=== PATIENT | male | born 1960 | race Caucasian/White ===

== ENCOUNTER → 2020-06-01 10:18 | Outpatient (BNVA) | payer OTHER, SELFPAY | PROVIDERS: PCP Internal Medicine; Visit Provider Internal Medicine Cardiovascular Disease | DX: R06.00 Dyspnea, unspecified (principal); R07.9 Chest pain, unspecified; E78.5 Hyperlipidemia, unspecified; I71.2 Thoracic aortic aneurysm, without rupture; Z82.49 Family history of ischemic heart disease and other diseases of the circulatory system | CPT/HCPCS: 93005 ==

== ENCOUNTER → 2020-06-09 08:16 | Outpatient (REF) | payer OTHER, SELFPAY ==
--- NOTE | ~2020-06-09 | NM_ITS ---
Exercise Myocardial perfusion study Indication: Chest pain to evaluate for myocardial ischemia Technique: The patient was brought in for an exercise perfusion study on 06/09/2020. Patient performed exercise as per Emmanuel protocol and was injected 30 mCi of sestamibi was given intravenously one target HR was achieved. Images were obtained using the SPECT gamma camera interlaced with the gating device. Images were obtained in supine position. Resting perfusion study was performed on 06/10/2020. Patient was administered 30 mCi of sestamibi intravenously at rest. Images were then obtained in supine position. Images obtained with and without CT attenuation. Total DLP 80 mGy-cm. Images were processed with the software and compared side to side in short axis, horizontal long axis and vertical long axis views. Findings: The stress perfusion study showed non attenuated images show minimally reduced uptake in the basal inferior wall of the LV myocardium. Attenuation corrected images show normal uptake of radiotracer in all segments of LV myocardium.. The gated study shows normal LV systolic function with calculated LVEF of 75%. LV cavity is normal in size. The gated study shows normal systolic wall thickening and contraction of all segments. There is no transient ischemic dilation. Resting study shows no change in perfusion pattern compared to stress perfusion study. Gating at rest reveals normal systolic wall motion with ejection fraction at 69%. The findings are consistent with normal myocardial perfusion. NM/NM cardiolite stress test Impression: 1. Normal myocardial perfusion 2. Gated LVEF is 69% 3. Transient ischemic dilatation not present Stress EKG is equivocal for ischemia
--- NOTE | 2020-06-09 08:30 | CA_ITS ---
Acquisition Time: 2020-06-09 09:27:09 Total Exercise Time: 00:11:00 Test Indications: CP SOB Medications: SEE CHART Protocol: GAEL Max HR: 148 BPM 91% of Pred: 161 BPM Max BP: 182/072 mmHG Max Work Load: 13.4 METS Exercise nuclear stress test using Gael protocol. Total of 11 minutes. METS 13.4 and TAPHR up to 90 %. Pt tolerated well, c/o chest pain that felt like muscular in his L chest radiating to his shoulder. EKG with occasional PAC's, no ischemic changes seen during exercise or in recovery. Nuclear images to follow. Hypertensive response to exercise. Test reviewed with Dr. Nickerson. Referred By: John Nickerson Overread By:
== END ==
LOC: HO.CARD 08:16
PROVIDERS: PCP Internal Medicine; Visit Provider Internal Medicine Cardiovascular Disease
DX: R07.9 Chest pain, unspecified (principal); R06.00 Dyspnea, unspecified
CPT/HCPCS: 78452; 93016; 93017; 93018; A9500

== ENCOUNTER → 2020-07-11 12:52 | Outpatient (REF) | payer OTHER, SELFPAY ==
--- NOTE | 2020-07-11 12:45 | CA_ITS ---
Transthoracic Echocardiogram Patient (Last, First, Middle): Efraín Aguirre G Gender: Male Date of : 1960 Age: 60 Procedure Date: 07/11/2020 Procedure Type: Transthoracic Echocardiogram Location: OP Height: 172.72 cm Weight: 79.38 kg BSA: 1.93 m2 Heart Rate: bpm BP: 119 / 68 mmHg Pelletizer Operator: MAHOGANY Referring MD: John Nickerson MD Symptoms: I71.2 - Thoracic aortic aneurysm, without rupture Study Quality: Fair ECG Rhythm: Sinus Conclusions: - The left ventricular systolic function is normal. The visually estimated ejection fraction is between 60-65%. - No obvious valvular pathology seen on this study. - Top normal ascending aortic size at 3.7cm. Findings Left Ventricle Normal left ventricular cavity size. There is normal left ventricular wall thickness. The left ventricular systolic function is normal. The visually estimated ejection fraction is between 60-65%. There is no evidence of regional wall motion abnormalities. Diastolic function is normal for age. Right Ventricle Normal right ventricular cavity size and systolic function. Atria The left atrium is normal in size. The right atrium is normal in size. Aortic Valve There is a normal trileaflet aortic valve. There is no aortic valve stenosis. There is no aortic valve regurgitation. Mitral Valve The mitral valve appears normal. There is trace mitral valve regurgitation. There is no mitral valve stenosis. Pulmonic Valve The pulmonic valve was not well visualized. Tricuspid Valve Normal tricuspid valve structure. There is mild tricuspid valve regurgitation. The pulmonary artery systolic pressure is normal. Great Vessels The aortic arch is normal in size. Top normal ascending aortic size at 3.7cm. Venous The inferior vena cava is normal in size and collapses greater than 50% with inspiration. Pericardium/Pleural There is no evidence of pericardial effusion. Prior Study Comparison No significant change compared to prior study dated: 01/09/2017. Recommendations, Care & Conclusions No obvious valvular pathology seen on this study. Measurements 2D Linear Measurements IVSd: 0.95 0.6-0.9/0.6-1.0 cm LVIDd: 4.31 3.9-5.3/4.2-5.9 cm LVIDd Index: 2.23 2.4-3.2/2.2-3.1 cm/m2 LVIDs: 2.88 2.0-3.6 cm LVPWd: 1.10 0.7-1.1 cm Ao Root: 3.40 2.1-3.5 cm LA Diam: 2.60 2.7-3.8/3.0-4.0 cm LAIDs Index: 1.35 1.5-2.3 cm/m2 LV Mass: 184.66 67-162/88-224 g LV Mass Index: 95.68 43-95/49-115 g/m2 LVOT Diam: 2.50 3.0+(-)1.3 cm 2D Systolic Function EF 4C: 59.40 >55% Mitral Valve MV Pk E: 0.76 MV PK A: 0.49 MV Decel Time: 204.00 E/A: 1.60 E'Lateral: 11.20 E'Medial: 9.96 E/E' Med: 7.60 E/E' Lat: 6.80 PHT: 60.00 MVA PHT: 3.67 Decel Karnes: 3.71 Aortic Valve AoV Pk Oswald: 1.10 AoV Pk Grad: 5.00 LVOT LVOT Pk Oswald: 0.89 LVOT Mn Oswald: 0.54 LVOT VTI: 0.19 LVOT Pk Grad: 3.00 LVOT Mn Grad: 1.00 LVOT Diam: 2.50 LVOT Area: 4.91 Diastolic Function MV Pk E: 0.76 MV Pk A: 0.49 E/A: 1.60 E'Medial: 9.96 E/E' Med: 7.60 E' Laterial: 11.20 E/E' Lat: 6.80 Tricuspid Valve TR Pk Oswald: 2.10 TR Pk Grad: 18.00 RA Press: 3.00 Great Vessels Aorta Ao Root-2D: 3.40 2.0-3.7 cm Ao Asc: 3.60 2.1-3.4 cm Ao Arch: 3.10 Updated in Other Vendor System with Status of Final Andriy Renteria MD electronically signed on 07/12/2020 8:46:00 AM with status of Final
== END ==
LOC: HO.CARD 12:52
PROVIDERS: Visit Provider Internal Medicine Cardiovascular Disease
DX: R07.9 Chest pain, unspecified (principal); I71.2 Thoracic aortic aneurysm, without rupture
CPT/HCPCS: 93306

== ENCOUNTER → 2020-07-14 08:52 | Outpatient (BNVA) | payer OTHER, SELFPAY | PROVIDERS: PCP Internal Medicine; Visit Provider Internal Medicine Cardiovascular Disease ==

== ENCOUNTER 2021-02-20 08:14 | Outpatient (REF) | payer OTHER, SELFPAY ==
--- NOTE | 2021-02-20 11:31 | MHC.AU.ANR ---
Adult Audiological Evaluation Date of Visit: 02/20/21 Reason for Appointment: Audiological evaluation due to concern for decreased hearing. Mr. Aguirre notes that his feels he doesn't hear well, and he feels like she is mumbling. 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 He feels his hearing may have started to gradually decrease over the past two years. 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 Medical History: Medical History: Head Injury Medical History (Other): Severe concussion in his young teens, hernia surgery ~2011 Allergies: Atorvastatin, niacin Medication List: IC Rosuvastatin 10 mg, IC Fexofenadine Otoscopy: Right Ear: Non-occluding cerumen, scarring on TM Left Ear: Unremarkable Tympanometry: Tympanometry performed due to: To assess integrity of the middle ear system Right Ear: Normal Middle Ear System (Type A) Left Ear: Normal Middle Ear System (Type A) Hearing Evaluation: Transducer(s) Used: Insert Earphones, Bone Conduction Method: Conventional Audiometry Stimuli Used: Pure Tones Right Ear: Description of Hearing: Normal hearing at 250 Hz, sloping to a mild sensorineural hearing loss at 500 Hz, rising to normal hearing from 2305-8311 Hz, sloping to a mild sensorineural hearing loss from 8464-7668 Hz, and rising to normal hearing at 8000 Hz. Left Ear: Description of Hearing: Normal hearing at 250-500 Hz, sloping to a mild sensorineural hearing loss at 1000 Hz, rising to normal hearing from 3562-1083 Hz, and sloping to a mild sensorineural hearing loss from 6047-5203 Hz. Speech Recognition Threshold (SRT): Method Used: Monitored Live Voice Stimuli Used: Spondee Words Right Ear: 20 dBHL Left Ear: 20 dBHL Word Discrimination: Method: Recorded Lists Word Lists Used: NU-6 Right Ear: 100% at 60 dBHL Left Ear: 100% at 60 dBHL QuickSIN: 2 dB SNR loss when presented binaurally at 60 dBHL, indicating normal [id number] understanding abilities. Recommendations: Audiological re-evaluation in one year to monitor the status of Mr. Aguirre's hearing loss. Amplification is not warranted at this time, giving that he only has a mild degree of hearing loss. Hearing protection should be used when around loud noise. Diagnosis: Primary Diagnosis: H90.3 Bilateral Sensorineural Hearing Loss Services Performed: Services Performed: Comprehensive Audiological Evaluation (CPT 85045) Tympanometry (CPT 35717) Signature: Provider: Vinicius Alcazar, CCC-A
== END 2021-02-20 08:15 | disposition home or self-care (01) ==
LOC: HO.SH 08:14
PROVIDERS: Visit Provider Internal Medicine
DX: H90.3 Sensorineural hearing loss, bilateral (principal)
CPT/HCPCS: 92557; 92567

== ENCOUNTER → 2022-06-28 10:40 | Outpatient (BNVA) | payer OTHER, SELFPAY | PROVIDERS: PCP Internal Medicine; Referring Provider Internal Medicine; Visit Provider Internal Medicine Cardiovascular Disease | DX: R07.9 Chest pain, unspecified (principal) | CPT/HCPCS: 93005 ==

== ENCOUNTER 2022-06-28 11:35 | Outpatient (REF) | payer OTHER, SELFPAY ==
[2022-06-28 13:27] LABS: Hematocrit 45.9 % (42.0-52.0); Hemoglobin 15.2 g/dl (14.0-18.0); Mean Corpuscular HGB Conc 33.1 g/dl (31.0-36.0); Mean Corpuscular Hemoglobin 30.9 pg (27.0-33.0); Mean Corpuscular Volume 93.3 fL (80.0-98.0); Mean Platelet Volume 11.1 fL (9.4-12.4); Platelet Count 219 X10*3/uL (160-400); Red Blood Count 4.92 X10*6/uL (4.60-5.80); White Blood Count 7.2 X10*3/uL (4.8-10.8)
[2022-06-28 13:32] LABS: INTERNATIONAL NORM RATIO 0.9 (0.9-1.1); Prothrombin Time 10.4 SEC (10.0-13.1)
[2022-06-28 14:02] LABS: Anion Gap 12 (12-20); Blood Urea Nitrogen 22 mg/dL (9-16); Calcium 9.5 mg/dL (8.4-10.2); Carbon Dioxide 29 mmol/L (22-29); Chloride 104 mmol/L (96-108); Estimated Glomerular Filt Rate > 60; Glucose Random 88 mg/dL (60-115); Potassium 4.7 mmol/L (3.3-5.1); Sodium 140 mmol/L (135-145)
== END 2022-06-28 11:36 | disposition home or self-care (01) ==
LOC: HO.LAB 11:35
PROVIDERS: PCP Internal Medicine; Visit Provider Internal Medicine Cardiovascular Disease
DX: R07.9 Chest pain, unspecified (principal); Z79.899 Other long term (current) drug therapy
CPT/HCPCS: 36415; 80048; 85027; 85610

== ENCOUNTER → 2022-07-24 14:39 | Outpatient (BNVA) | payer OTHER, SELFPAY | PROVIDERS: PCP Internal Medicine; Visit Provider Internal Medicine Cardiovascular Disease | DX: Z13.89 Encounter for screening for other disorder (principal) ==

== ENCOUNTER → 2023-07-19 07:49 | Outpatient (REF) | payer OTHER, SELFPAY ==
--- NOTE | 2023-07-19 07:54 | CA_ITS ---
Transthoracic Echocardiogram Patient (Last, First, Middle): Efraín Aguirre G Gender: Male Date of : 1960 Age: 63 Procedure Date: 07/19/2023 Procedure Type: Transthoracic Echocardiogram Location: OP Height: 172.72 cm Weight: 77.11 kg BSA: 1.91 m2 Heart Rate: bpm BP: 118 / 82 mmHg Project Development Coordinator: TO Referring MD: John Nickerson MD Pin Sticker: John Nickerson MD Symptoms: I71.2 - Thoracic aortic aneurysm, without rupture Study Quality: Fair/Contrast ECG Rhythm: Sinus Conclusions: - 1. Normal LV ejection fraction of 55-60% 2. Normal cardiac valvular Doppler 3. Normal RV systolic pressure 4. Mildly dilated ascending aorta at 3.9 cm 5. No gross pericardial effusion Findings Procedure Information Contrast agent, definity, is being given per protocol without apparent complications. Left Ventricle Normal left ventricular size, thickness, and systolic function. The visually estimated ejection fraction is between 55-60%. Spectral Doppler is indicative of a normal filling pattern. Right Ventricle Normal right ventricular cavity size and systolic function. Atria Both atria are normal in size. There is no evidence of interatrial shunt. Aortic Valve Normal aortic valve structure and function. There is mild thickening of the aortic valve. There is no aortic valve stenosis. There is no aortic valve regurgitation. Mitral Valve There is mild anterior and posterior mitral leaflet thickening. There is trace mitral valve regurgitation. There is no mitral valve stenosis. Pulmonic Valve The pulmonic valve is likely normal. There is trace pulmonic valve regurgitation. Tricuspid Valve Normal tricuspid valve structure. There is mild tricuspid valve regurgitation. The right ventricular systolic pressure is normal. The right ventricular systolic pressure is 26 mmHg. Normal right atrial pressure. There is no evidence of pulmonary hypertension. Great Vessels The pulmonary artery was not well visualized. There is mild dilatation of the ascending aorta measuring 3.90 cm. Venous The inferior vena cava is normal in size and collapses greater than 50% with inspiration. Pericardium/Pleural There is no evidence of pericardial effusion. Prior Study Comparison No significant change compared to prior study dated: 07/11/2020. Measurements 2D Linear Measurements IVSd: 1.09 0.6-0.9/0.6-1.0 cm LVIDd: 4.48 3.9-5.3/4.2-5.9 cm LVIDd Index: 2.35 2.4-3.2/2.2-3.1 cm/m2 LVIDs: 2.59 2.0-3.6 cm LVPWd: 0.95 0.7-1.1 cm LA Diam: 3.30 2.7-3.8/3.0-4.0 cm LAIDs Index: 1.73 1.5-2.3 cm/m2 LV Mass: 195.27 67-162/88-224 g LV Mass Index: 102.24 43-95/49-115 g/m2 LVOT Diam: 2.20 3.0+(-)1.3 cm 2D Systolic Function EF 4C: 60.00 >55% EF 2C: 57.00 >55% EF BiP: 57.80 >55% Mitral Valve MV Pk E: 0.76 MV PK A: 0.48 MV Decel Time: 177.00 E/A: 1.60 E'Lateral: 8.38 E'Medial: 8.38 E/E' Med: 9.00 E/E' Lat: 9.00 PHT: 52.00 MVA PHT: 4.23 Decel Parker: 4.28 Aortic Valve AoV Pk Oswald: 1.12 AoV Mn Oswald: 0.79 AoV VTI: 0.25 AoV Pk Grad: 5.00 Aov Mn Grad: 3.00 MELISSA Cont.VTI: 2.96 LVOT LVOT Pk Oswald: 0.92 LVOT Mn Oswald: 0.61 LVOT VTI: 0.20 LVOT Pk Grad: 3.00 LVOT Mn Grad: 2.00 LVOT Diam: 2.20 LVOT Area: 3.80 Diastolic Function MV Pk E: 0.76 MV Pk A: 0.48 E/A: 1.60 E'Medial: 8.38 E/E' Med: 9.00 E' Laterial: 8.38 E/E' Lat: 9.00 Right Ventricle TAPSE (mm): 27.20 TVS' Oswald: 13.70 Tricuspid Valve TR Pk Oswald: 2.38 TR Pk Grad: 23.00 RA Press: 3.00 RVSP: 26.00 Great Vessels Aorta Sinus of Valsalva: 3.95 2.0-3.[address] Ridge: 3.31 1.7-3.4 cm Ao Asc: 3.90 2.1-3.4 cm Ao Arch: 3.40 Updated in Other Vendor System with Status of Final John Nickerson MD electronically signed on 07/20/2023 10:56:06 AM with status of Final
== END ==
LOC: HO.CARD 07:49
PROVIDERS: PCP Internal Medicine; Visit Provider Internal Medicine Cardiovascular Disease
DX: I71.20 Thoracic aortic aneurysm, without rupture, unspecified (principal)
CPT/HCPCS: 93306; Q9957

== ENCOUNTER → 2023-07-19 07:54 | Outpatient (BNV) | payer OTHER, SELFPAY | PROVIDERS: PCP Internal Medicine; Visit Provider Internal Medicine Cardiovascular Disease | DX: I71.21 Aneurysm of the ascending aorta, without rupture (principal); I36.1 Nonrheumatic tricuspid (valve) insufficiency | CPT/HCPCS: 93306 ==

== ENCOUNTER 2023-07-23 08:36 | Outpatient (AMB) | payer OTHER, SELFPAY ==
[2023-07-23 08:37] VITALS: BP 120/70; PULSE 68; BMI 27.1
--- NOTE | 2023-07-23 08:37 | MHC.OFFVIS ---
Intake Vital Signs 07/23/23 08:37 Height 5 ft 8 in Weight 178 lb 9.191 oz BMI 27.1 BP 120/70 Blood Pressure Location Lt brachial Position Sitting Pulse 68 Intake Visit Reasons: 1 year follow up echo Intake Note: 1 year follow-up with ekg after echo feeling good Regional Director Required: No Allergies atorvastatin [Lipitor] Allergy (Unknown, Verified 03/07/21 12:42) muscle pain niacin [Niaspan Extended-Release] Allergy (Unknown, Verified 03/07/21 12:42) flushing Medication List - Last Reconciled 07/23/23 by John Nickerson MD aspirin (Ecotrin Low Strength) 81 mg PO DAILY fexofenadine (Reva Allergy) 180 mg PO DAILY metoprolol succinate ER (Toprol XL) 25 mg PO DAILY 90 days rosuvastatin 40 mg PO DAILY HPI HPI Comments History of Present Illness Details Ed comes for follow-up. He has been doing well from cardiac perspective. He remains active. Goes for walks and plays pickleball without any issues. He continues to work 1 job now. Denies any exertional chest pain or shortness of breath. No prolonged palpitation irregular heartbeat. No lightheadedness, syncope. He takes all his medications. He says occasionally forgets to take his aspirin. He said his lipids were well optimized. Blood pressures been well controlled. [facility] Medical History Thoracic aortic aneurysm Hyperlipidemia Surgical History History of hernia surgery Family History Mother Diabetes Father History of cardiac arrest Heart disease Sister CAD (coronary artery disease) Social History Alcohol intake: current Patient Tobacco Use Status: Never used Tobacco Review of Systems Const Denies chills, Denies fatigue, Denies fever(s), Denies frequent falls, Denies weakness, Denies weight gain and Denies weight loss ENT Denies dizziness Card Denies chest pain, Denies leg edema, Denies lightheadedness, Denies palpitations, Denies dyspnea, Denies dyspnea on exertion, Denies orthopnea and Denies other (loss of consciousness) Resp Denies cough, Denies dyspnea and Denies dyspnea on exertion GI Denies hematochezia and Denies change in stool character Musc Denies abnormal gait, Denies muscle weakness, Denies numbness, Denies radiating pain into limb and Denies tingling Neuro Denies abnormal gait, Denies dizziness, Denies frequent falls, Denies numbness, Denies tingling and Denies weakness Endo Denies fatigue and Denies palpitations Physical Exam Vital Signs: Last Vital Signs Pulse 68 07/23/23 08:37 BP 120/70 07/23/23 08:37 BMI result Body Mass Index 27.1 Const General: cooperative, comfortable, no acute distress, well developed, alert, awake and well groomed Nutritional Appearance: average body habitus and well nourished Orientation/consciousness: patient oriented x3 Neck Neck: Yes trachea midline, Yes supple and Yes no JVD Resp Effort & Inspection: normal respiratory effort Auscultation: clear to auscultation bilaterally Cardio Jugular venous distension: no JVD Palpation: normal PMI Rate: regular rate Rhythm: regular rhythm Heart sounds: S1 normal heart sound present, S2 normal heart sound present, no click, no gallops, no murmurs and no rubs GI Auscultation: normal bowel sounds Skin General skin exam: no rashes or lesions noted Neuro General: patient oriented x3 and no focal motor deficits Extrem General: Yes no clubbing, cyanosis or edema and Yes other (Right radial side of cardiac catheterization within normal limits) Office Procedures EKG Details: EKG shows normal sinus rhythm with incomplete right bundle-branch block was normal EKG [id number], Complete Assessment & Plan Assessment & Plan (1) CAD (coronary artery disease): Code(s): I25.10 - Atherosclerotic heart disease of [place] coronary artery without angina pectoris Plan: Nonobstructive CAD with heavy coronary calcium in the LAD territory with strong family history for premature coronary artery disease. Continue aggressive medical therapy. Importance of aggressive lipid modification was discussed. Target goal LDL closer to 60 mg/dL. Will obtain lipid panel from your office. Continue low-dose aspirin therapy. Advised to call me with any worsening symptoms. Anginal symptoms were discussed. (2) Thoracic aortic aneurysm: Code(s): I71.2 - Thoracic aortic aneurysm, without rupture Plan: Mild thoracic intervention. No surgical intervention required. Continue aggressive medical therapy. Continue medical therapy as above. Advised to avoid sudden strenuous isometric exercise. Given the stable nature of thoracic aortic aneurysm will follow-up in 2 years time. Will follow up in the clinic in 2 years time, sooner p.r.n.. Thank you for allowing me to partake in his care Coding Level of Care Code Est Pt Level 4 (11656) Diagnoses CAD (coronary artery disease) I25.10 Thoracic aortic aneurysm I71.2 CPT Codes EKG - CPT: 72345-[id number], Complete ([id number])
== END 2023-07-23 09:01 | disposition home or self-care (01) ==
PROVIDERS: PCP Internal Medicine; Visit Provider Internal Medicine Cardiovascular Disease
DX: I25.10 Atherosclerotic heart disease of native coronary artery without angina pectoris (principal); I71.20 Thoracic aortic aneurysm, without rupture, unspecified
CPT/HCPCS: 93010; 99214

== ENCOUNTER → 2023-07-23 08:36 | Outpatient (BNVA) | payer OTHER, SELFPAY | PROVIDERS: Visit Provider Internal Medicine Cardiovascular Disease | DX: I25.10 Atherosclerotic heart disease of native coronary artery without angina pectoris (principal); I71.20 Thoracic aortic aneurysm, without rupture, unspecified; Z79.82 Long term (current) use of aspirin | CPT/HCPCS: 93005 ==

== ENCOUNTER 2024-07-27 07:46 | Outpatient (REF) | payer OTHER, SELFPAY ==
--- OUTSIDE RECORDS SUMMARY | 2024-07-27 07:50 | XMS_ITS | Referral Summary ---
Author Organization [facility] Address [address] [id number] Care Team Providers Care Mmd Unit Teacher Name Role Phone Lokesh Beckwith Primary Care Provider [phone] Social History Tobacco Use Types Packs/Day Years Used Date Smoking Tobacco: Never Assessed Sex and Gender Information Value Date Recorded Sex Assigned at Not on file Legal Sex Male 1:55 PM EST Gender Identity Not on file Sexual Orientation Not on file Plan of Treatment Not on file Insurance [employer] Care Teams Mmd Unit Teacher Relationship Specialty Start Date End Date Lokesh Beckwith [facility] Internal [facility] [address] [place] [address] PCP - General Internal Medicine 06/03/20
--- OUTSIDE RECORDS SUMMARY | 2024-07-27 07:50 | XMS_ITS | Clinical Summary ---
Author Organization [facility] Address [address] [place] [address] Care Team Providers Care National Secretary Name Role Phone Juliaetta Lokesh Jackman Primary Care Provider [phone] Social History Tobacco Use Types Packs/Day Years Used Date Smoking Tobacco: Never Assessed Sex and Gender Information Value Date Recorded Sex Assigned at Not on file Legal Sex Male 1:55 PM EST Gender Identity Not on file Sexual Orientation Not on file Plan of Treatment Health Maintenance Due Date Last Done Comments Cologuard 1960 Colon Cancer Screening 1960 Colonoscopy 1960 FOBT / Fit Test 1960 HIV Screening 1960 Sigmoidoscopy 1960 Pneumococcal Vaccine: 50+ Years (1 of 1 - PCV) 2011 COVID-19 Vaccine (3 - season) 2023 05/23/2020, 04/27/2020 Alcohol/Substance Use Screening 04/15/2024 Influenza Vaccine (Season Ended) 2024 03/06/2020, 01/27/2018, 04/22/2017, Additional history exists DTaP,Tdap,and Td Vaccines (3 - Td or Tdap) 04/25/2028 04/25/2018, 06/14/2007 RSV Vaccine (60+ years old and patients) (1 - 1-dose 75+ series) 2036 Zoster Vaccines Completed 06/08/2019, 05/17/2018 Hepatitis B Vaccines Aged Out No long er eligible based on patient's age to complete this topic Insurance [employer] Care Teams National Secretary Relationship Specialty Start Date End Date Lokesh Beckwith [facility] [address] [place] [address] PCP - General Internal Medicine 06/03/20
== END 2024-07-27 07:47 | disposition home or self-care (01) ==
LOC: HO.SH 07:46
PROVIDERS: Visit Provider Internal Medicine
DX: Z01.118 Encounter for examination of ears and hearing with other abnormal findings (principal); H90.3 Sensorineural hearing loss, bilateral
CPT/HCPCS: 92557